=== PATIENT | male | born 1935 | race American Indian/Alaskan Native ===

== ENCOUNTER 2017-11-06 11:45 | Outpatient (CLI) | payer MEDICARE, OTHER ==
--- NOTE | 2017-11-06 12:21 | XRay Report ---
CHEST TWO VIEWS: 11/06/17 11:45:00 CLINICAL: Chest pain. COMPARISON: None FINDINGS: Normal heart and pulmonary vasculature.The aorta is heavily calcified and tortuous. A right central venous catheter tip is in the right atrium. The lungs are normally expanded and clear. No airspace disease or pleural effusion. The left hemidiaphragm is mildly elevated by a distended stomach. Surgical clips in the right axilla. Degenerative changes in the spine. No suspicious bone lesions. IMPRESSION: No acute cardiopulmonary process. No signs of TB. Extensive atherosclerotic disease of the aorta.
== END 2017-11-06 11:46 | disposition home or self-care (01) ==
LOC: SPVIMAG 11:45
PROVIDERS: ATTEND Internal Medicine
DX: R61 Generalized hyperhidrosis (principal); J98.6 Disorders of diaphragm; I70.0 Atherosclerosis of aorta; M47.894 Other spondylosis, thoracic region
CPT/HCPCS: 71046

== ENCOUNTER 2017-11-20 09:19 | Outpatient (CLI) | payer MEDICARE, OTHER ==
--- NOTE | 2017-11-20 16:53 | Ultrasound Report ---
RIGHT UPPER QUADRANT ABDOMINAL ULTRASOUND: 11/20/17 09:19:00 CLINICAL: Elevated phosphatase level. No comparison. FINDINGS: High-resolution ultrasound demonstrated a normal size liver with a heterogeneous nodular echo pattern. However, no distinct liver mass is identified. The gallbladder is personally contracted with mild sludge. No stones identified. The gall bladder wall measures 3 mm mm in thickness. Normal intrahepatic and extra hepatic bile ducts. The common bile duct measures 4 mm diameter. The pancreas is small with scattered calcifications. Normal upper abdominal aorta. The right kidney is atrophic with several benign cysts.The right kidney measures 7.6 x 5.6 x 5.8 cm. The largest cyst measures 4.0 x 3.7 x 2.9 cm. No hydronephrosis. No solid mass or calculus. No ascites or mass. IMPRESSION: 1. Changes in the liver suggest possible hepatocellular disease. However, no signs of portal hypertension. 2. Gallbladder sludge but no stones. 3. 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 4. Small right kidney with several benign cysts.
--- NOTE | 2017-11-20 20:22 | XRay Report ---
FINAL REPORT PROCEDURE: XR HIPS BILAT 2V W/PELVIS TECHNIQUE: Bilateral hip radiographs, 2 views each, including AP view of the pelvis. HISTORY: BACK PAIN COMPARISON: No prior studies are available for comparison. FINDINGS: No acute fracture or joint dislocation is seen. Bilateral hip joint space narrowing. There is diffuse underlying osteopenia. There are clips seen in the pelvis bilaterally. IMPRESSION: No acute fracture is seen. If there are significant persistent symptoms, further evaluation with CT could be obtained
--- NOTE | 2017-11-20 22:41 | XRay Report ---
FINAL REPORT PROCEDURE: XR SPINE LUMBOSACRAL 2-3V TECHNIQUE: Lumbar spine radiographs, including AP, lateral, oblique, and lumbosacral spot views. HISTORY: BACK PAIN COMPARISON: No prior studies are available for comparison. FINDINGS: The vertebral body heights and alignment are grossly maintained. There is no scoliosis. Mild degenerative disc changes are seen at L4-5 and L5-S1. Incidental note is made of calcifications overlying the right abdomen IMPRESSION: Mild degenerative changes
== END 2017-11-20 09:20 | disposition home or self-care (01) ==
LOC: SPVWC 09:19
PROVIDERS: ATTEND Internal Medicine
DX: N28.1 Cyst of kidney, acquired (principal); N26.1 Atrophy of kidney (terminal); K86.89 Other specified diseases of pancreas; M47.897 Other spondylosis, lumbosacral region; R74.8 Abnormal levels of other serum enzymes
CPT/HCPCS: 72100; 73521; 76705